=== PATIENT | male | born 1955 | race Caucasian/White ===

== ENCOUNTER → 2019-03-24 | Outpatient (CLI) | payer OTHER ==
[~2019-03-24] MED LIST: ALLERGY RELIEF4 MG PO; CLARITIN10 M3 PO; FLOMAX0.4 MG PO; HYDROCHLOROTHIA25 M2 PO; MELOXICAM15 MG PO; NEURONTIN300 MG PO; TRAMADOL 50 MG50 MG PO; ZANAFLEX4 M1 PO
== END ==
LOC: M.PC 12-23 14:00
DX: M47.16 Other spondylosis with myelopathy, lumbar region (principal); M51.06 Intervertebral disc disorders with myelopathy, lumbar region; G89.29 Other chronic pain; Z88.0 Allergy status to penicillin

== ENCOUNTER → 2019-04-02 | Outpatient (CLI) | payer OTHER | LOC: M.LAB 01:33 | DX: E87.6 Hypokalemia (principal) ==

== ENCOUNTER → 2020-04-03 | Outpatient (CLI) | payer OTHER | LOC: M.PC 07:09 | PROVIDERS: ATTEND Physical Medicine & Rehabilitation | DX: M47.816 Spondylosis without myelopathy or radiculopathy, lumbar region (principal); M51.16 Intervertebral disc disorders with radiculopathy, lumbar region; R26.89 Other abnormalities of gait and mobility; Z87.39 Personal history of other diseases of the musculoskeletal system and connective tissue; G81.10 Spastic hemiplegia affecting unspecified side; Z79.899 Other long term (current) drug therapy ==

== ENCOUNTER → 2020-04-13 | Outpatient (CLI) | payer OTHER | LOC: M.MRI 06:22 | PROVIDERS: ATTEND Physical Medicine & Rehabilitation | DX: M51.16 Intervertebral disc disorders with radiculopathy, lumbar region (principal); M47.26 Other spondylosis with radiculopathy, lumbar region; M48.07 Spinal stenosis, lumbosacral region; M43.17 Spondylolisthesis, lumbosacral region; M25.78 Osteophyte, vertebrae ==

== ENCOUNTER → 2020-05-29 | Outpatient (CLI) | payer OTHER | LOC: M.LAB 05:35 | PROVIDERS: ATTEND Anesthesiology | DX: E87.6 Hypokalemia (principal) ==